=== PATIENT | female | born 1985 | race Caucasian/White ===

== ENCOUNTER 2023-04-20 12:10 | Emergency (ER) | payer BC, SELFPAY ==
[2023-04-20 12:19] VITALS: BP 113/71; PULSE 73; RESP 16; TEMP 36.7; O2SAT 100
--- NOTE | 2023-04-20 12:36 | CRLHL7_ITS ---
For Patients: As a result of the Century Cures Act, medical imaging exams and procedure reports are released immediately into your electronic medical record. You may view this report before your referring provider. If you have questions, please contact your health care provider. INDICATION: Right lower quadrant and flank pain for 1 month. TECHNIQUE: Multiplanar CT examination of the abdomen and pelvis were acquired after the administration of 66 mL Isovue 370 intravenously. COMPARISON: None. FINDINGS: The paucity of intraperitoneal fat limits evaluation. Lower chest: Unremarkable. Liver: Normal. Gallbladder/Biliary: Normal. No biliary ductal dilitation. Pancreas: Normal. Spleen: Normal. Adrenal Glands: Normal. Kidneys: Normal size and symmetrically enhancing. No obstructive calculi or hydronephrosis. Ureters: Unremarkable. Bladder: Unremarkable. Bowel: No obstruction or bowel wall thickening. The there is a small appendicolith at the tip of the appendix, with increased caliber of the appendiceal tip measuring 10 mm (4:67). However, there is no significant periappendiceal fat stranding. No significant colonic diverticulosis. Pelvic organs: Unremarkable. Peritoneum: No free fluid or pneumoperitoneum. Vessels: Normal. Portal vein remains patent. No significant atherosclerotic disease. Lymph Nodes: No lymphadenopathy. Abdominal Wall/Soft Tissues: Unremarkable. Bones: Unremarkable. IMPRESSION: Tiny appendicolith with associated dilation of the appendiceal tip measuring 10 mm, without periappendiceal inflammation to suggest active/acute appendicitis. Please note that all CT scans at this facility use dose modulation, iterative reconstruction, and/or weight-based dosing when appropriate to reduce radiation dose to as low as reasonably achievable. Dictated by Nathan Linton MD @ 04/20/2023 2:25:22 PM (Electronically Signed)
--- NOTE | 2023-04-20 12:50 | ED.ABDPAIN ---
HPI - Abdominal Pain General Date Seen: 04/20/23 Chief Complaint: Abdominal Pain Stated Complaint: abdominal pain Time Seen by Provider: 04/20/23 12:15 Source: patient Mode of arrival: ambulatory Limitations: no limitations History of Present Illness HPI narrative: Patient is a 38-year-old female presenting for right flank pain and right lower quadrant abdominal pain. She states right flank pain has been going on for a month and she thought it was getting better but feels like she aggravated it this past Thursday. Can not remember any specific injuries or trauma to the area causing the pain. Denies fevers, chills, nausea/vomiting, diarrhea constipation, lightheadedness, dizziness, chest pain, shortness of breath. She states for the past few days she has been noting right lower quadrant abdominal pain. She also states she has never had this pain before. Denies any previous abdominal surgeries. Has not had any sick contacts that she is aware of. Related Data Home Medications Medication Instructions Recorded Confirmed No Known Home Medications 04/20/23 04/20/23 Allergies Allergy/AdvReac Type Severity Reaction Status Date / Time No Known Drug Allergies Allergy Verified 04/20/23 14:15 [facility] Social History Smoking Status: Never smoker Do you use any of these nicotine containing products: None Second hand tobacco smoke exposure: No How often do you have a drink containing alcohol: monthly or less How often do you have six or more drinks on one occasion: Never AUDIT-C Alcohol total score: 1 Non-prescribed substance use: denies use Exam Narrative: Exam Narrative: Const: Well-nourished, Well-developed, in mild distress Eyes: PERRL, no conjunctival injection, and symmetrical lids HENT: Atraumatic external nose and ears. Moist mucous membranes. Neck: Symmetric, trachea midline, No thyromegaly. CVS: RRR, No murmurs or gallops. Peripheral pulses 2+ and equal in all extremities RESP: Unlabored respiratory effort. Clear to auscultation bilaterally. GI: Mild right lower quadrant tenderness, Nondistended, No rebound or guarding. No CVA tenderness MSK:Extremities w/o deformity, Normal Active ROM, tenderness posterior lateral between ribs 11 and 12 on the right Skin: Warm, Dry. No rashes or lesions. Neuro: Normal Muscle tone, No focal neurological deficits. Psych: Awake, Alert, & Oriented x3. Appropriate mood and affect. Const: Vital Signs, click to edit/add: Vital Signs - 24 hr 04/20/23 12:19 Temperature 98.1 F Pulse Rate [Pulse Oximeter] 73 Respiratory Rate 16 Blood Pressure [Ri ght Upper Arm] 113/71 Pulse Oximetry 100 Oxygen Delivery Me thod Room Air Course Vital Signs Vital signs: Initial Vital Signs Temperature 98.1 F 04/20/23 12:19 Temperature Source Oral 04/20/23 12:19 Pulse Rate 73 04/20/23 12:19 Pulse Rhythm Regular 04/20/23 12:19 Pulse Strength 3+ Normal 04/20/23 12:19 Respiratory Rate 16 04/20/23 12:19 Blood Pressure 113/71 04/20/23 12:19 Blood Pressure Mean 85 04/20/23 12:19 Pulse Oximetry 100 04/20/23 12:19 Oxygen Delivery Method Room Air 04/20/23 12:19 Vital Signs Temperature 98.1 F 04/20/23 12:19 Pulse Rate 73 04/20/23 12:19 Respiratory Rate 16 04/20/23 12:19 Blood Pressure 113/71 04/20/23 12:19 Pulse Oximetry 100 04/20/23 12:19 Oxygen Delivery Method Room Air 04/20/23 12:19 Temperature 98.1 F 04/20/23 12:19 Pulse Rate 73 04/20/23 12:19 Respiratory Rate 16 04/20/23 12:19 Blood Pressure 113/71 04/20/23 12:19 Pulse Oximetry 100 04/20/23 12:19 Oxygen Delivery Method Room Air 04/20/23 12:19 MDM - Abdominal Pain MDM Narrative Medical decision making narrative: Patient is a 38 year old female presenting for right lower quadrant right flank pain. Symptoms could be from nephrolithiasis or appendicitis. Could also just be musculoskeletal in nature. Seems unlikely to be an SBO this time. Were ordered CBC, CMP, urine test, urinalysis, lipase, CT abdomen pelvis with contrast. CBC, lipase, CMP, urinalysis all returned showing no abnormalities. She is not requesting any pain medication at this time. CT scan of the abdomen and pelvis shows no signs of nephrolithiasis but there is appendicolith in the appendix. There is no acute appendicitis though. I spoke to Dr. Bella and informed her of the symptoms. She states the patient does not need to follow-up outpatient but if symptoms persist she can. She also states that the symptoms worsen all the patient should return to emergency department for re-evaluation. At this time since there is no acute appendicitis there is no emergent need for surgery. Patient is exam is also relatively benign with a normal white count to also make it more likely this is not appendicitis. When he comes to the flank pain she is tender between the ribs had a pinpoint area that makes it seem more likely this is a musculoskeletal issue. Patient be discharged home and she is agreeable with this plan. Lab Data Labs: Lab Results 04/20/23 04/20/23 Range/Units 12:49 12:52 WBC 4.76 (4.50-11.00) K/uL RBC 4.19 (4.00-5.20) m/uL Hgb 12.4 (12.0-16.0) gm/dL Hct 39.3 (33.0-51.0) % MCV 94 (80-100) fL MCH 30 (26-34) pg MCHC 32 (32-36) gm/dL RDW Coeff of [place] 12.8 (11.5-15.5) % Plt Count 206 (140-440) K/uL Neut % (Auto) 63.2 (42.0-72.0) % Lymph % (Auto) 25.0 (20-44) % [place] % (Auto) 8.8 (0.0-11.0) % Eos % (Auto) 1.7 (0.0-7.0) % Baso % (Auto) 1.1 (0.0-3.0) % Neut # (Auto) 3.01 (1.7-7.0) K/uL Lymph # (Auto) 1.19 (0.90-2.90) K/uL [place] # (Auto) 0.40 (0.00-0.90) K/UL Eos # (Auto) 0.08 (0.00-0.50) K/uL Baso # (Auto) 0.05 (0.00-0.30) K/uL Abs Immat Gran (auto) 0.01 (0.00-0.30) K/uL Imm/Tot Granulo (auto) 0.2 % Sodium 139 (135-149) mmol/L Potassium 3.9 (3.6-5.1) mmol/L Chloride 105 (96-114) mmol/L Carbon Dioxide 27 (20-32) mmol/L Anion Gap 7 (7-15) mEq/L BUN 14 (5-24) mg/dL Creatinine 0.6 (0.5-1.5) mg/dL Estimated GFR 117 ml/min Glucose 88 (60-115) mg/dL Calcium 9.0 (8.4-10.6) mg/dL Total Bilirubin 0.4 (0.1-1.5) mg/dL AST 23 (12-35) U/L ALT 21 (4-35) U/L Alkaline Phosphatase 40 (40-150) U/L Total Protein 7.8 (6.0-8.3) g/dL Albumin 4.6 (3.3-5.0) g/dL Lipase 137 (23-300) U/L Urine Color Light yellow (Yellow) Urine Appearance Clear (Clear) Urine pH 7.0 (5.0-8.5) Ur Specific [place] 1.015 (1.000-1.030) Urine Protein Negative (Negative) Urine Glucose (UA) Negative (Negative) Urine Ketones Negative (Negative) Urine Blood Negative (Negative) Urine Nitrite Negative (Negative) Urine Bilirubin Negative (Negative) Urine Urobilinogen 0.2 (0.2-1.0) Ur Leukocyte Esterase Negative (Negative) Urine RBC 0-2 (0-2) Urine WBC 0-2 (0-5) Ur Squamous Epith Cells Few (None-Few) Urine Bacteria Few A (None) Urine HCG, Qual Negative (Negative) Imaging Data CT scan abdomen pelvis: Radiologist's impression: Tiny appendicolith with associated dilation of the appendiceal tip measuring 10 mm, without periappendiceal inflammation to suggest active/acute appendicitis. Please note that all CT scans at this facility use dose modulation, iterative reconstruction, and/or weight-based dosing when appropriate to reduce radiation dose to as low as reasonably achievable. Dictated by Nathan Linton MD @ 04/20/2023 2:25:22 PM Discharge Plan Discharge Clinical Impression: Muscle strain, Abdominal pain Patient Disposition: Home, Self-Care Condition: Stable Instructions: Abdominal Pain (ED) Additional Instructions: The pain on her right flank is right between 2 of the ribs and is very pinpoint in nature. This makes me believe is musculoskeletal cause of the pain. Take Tylenol or ibuprofen for the pain For right lower quadrant abdominal pain his CT scan did show a small appendicolith that is blocking the appendix but no clear signs of appendicitis. Her lab work is also normal. This may be causing your pain but does not need surgery at this time. If symptoms worsen such as developing a fever, worsening abdominal pain, uncontrollable nausea and vomiting or any other concerning symptoms return to the emergency department for evaluation. If the pain is persistent but is not getting worse you can call the [facility] to set up outpatient general surgery follow-up Prescriptions: No Action No Known Home Medications Follow Up/Referrals: Provider,Not a Local [Primary Care Provider] - Stand Alone Forms: [employer] Info Instructions
[2023-04-20 13:21] LABS: Basophils Absolute Auto 0.05 K/uL (0.00-0.30); Basophils Percent Auto 1.1 % (0.0-3.0); Eosinophils Absolute Auto 0.08 K/uL (0.00-0.50); Eosinophils Percent Auto 1.7 % (0.0-7.0); Hematocrit 39.3 % (33.0-51.0); Hemoglobin* 12.4 gm/dL (12.0-16.0); Immature Granulocytes Abs Auto 0.01 K/uL (0.00-0.30); Immature Granulocytes Pct Auto 0.2 %; Lymphocytes Absolute Auto 1.19 K/uL (0.90-2.90); Mean Corpuscular HGB Conc 32 gm/dL (32-36); Mean Corpuscular Hemoglobin 30 pg (26-34); Mean Corpuscular Volume 94 fL (80-100); Monocytes Percent Auto 8.8 % (0.0-11.0); Neutrophils Absolute Auto 3.01 K/uL (1.7-7.0); Neutrophils Percent Auto 63.2 % (42.0-72.0); Platelet Count* 206 K/uL (140-440); RDW Coefficient of Variation % 12.8 % (11.5-15.5); Red Blood Count 4.19 m/uL (4.00-5.20); White Blood Count* 4.76 K/uL (4.50-11.00)
[2023-04-20 13:26] LABS: Slide Review Reflex No
[2023-04-20 13:33] LABS: Albumin* 4.6 g/dL (3.3-5.0); Chloride* 105 mmol/L (96-114); Sodium* 139 mmol/L (135-149)
[2023-04-20 13:34] LABS: Potassium* 3.9 mmol/L (3.6-5.1)
[2023-04-20 13:35] LABS: Creatinine* 0.6 mg/dL (0.5-1.5); Estimated Glomerular Filt Rate 117 ml/min
[2023-04-20 13:36] LABS: Alanine Aminotransferase* 21 U/L (4-35); Alkaline Phosphatase* 40 U/L (40-150); Anion Gap 7 mEq/L (7-15); Aspartate Amino Transferase* 23 U/L (12-35); Bilirubin Total* 0.4 mg/dL (0.1-1.5); Blood Urea Nitrogen* 14 mg/dL (5-24); Carbon Dioxide* 27 mmol/L (20-32); Glucose* 88 mg/dL (60-115); Lipase* 137 U/L (23-300); Total Protein* 7.8 g/dL (6.0-8.3)
[2023-04-20 13:39] LABS: Appearance Urine Clear (Clear); Bilirubin Urine Negative (Negative); Blood Urine Negative (Negative); Color Urine Light yellow (Yellow); Glucose Urine Negative (Negative); Ketones Urine Negative (Negative); Leukocyte Esterase Urine Negative (Negative); Nitrite Urine Negative (Negative); Protein Urine Negative (Negative); Specific Gravity Urine 1.015 (1.000-1.030); Urobilinogen Urine 0.2 (0.2-1.0)
[2023-04-20 13:55] LABS: Bacteria Urine Few; RBC Urine 0-2 (0-2); Squamous Epithelial Cell Urine Few (None-Few); WBC Urine 0-2 (0-5)
[2023-04-20 14:57] LABS: Ur HCG Qualitative* Negative (Negative)
[2023-04-20 15:17] VITALS: BP 112/77; PULSE 71; RESP 18; O2SAT 98
== END 2023-04-20 15:18 | disposition home or self-care (01) ==
PROVIDERS: Emergency Provider Student in an Organized Health Care Education/Training Program
DX: R10.31 Right lower quadrant pain (principal); S39.011A Strain of muscle, fascia and tendon of abdomen, initial encounter
CPT/HCPCS: 36415; 74177; 80053; 81001; 81025; 83690; 85025; 87086; 99283; 99284; Q9967